=== PATIENT | male | born 1960 | race African-American/Black ===

== ENCOUNTER 2018-04-17 13:18 | Outpatient (CLI) | payer OTHER ==
--- NOTE | 2018-04-17 14:04 | Diagnostic Imaging Report ---
Indication:Thyroid nodule Technique: Grayscale and duplex Doppler imaging of the thyroid gland performed. Comparison: None Findings: The size, contour, and echogenicity of both lobes of the thyroid gland are right lobe 2.9 x 1.2 x 1.8 cm. Left lobe 3.8 x 1.8 x 1.2 cm. Tiny cyst noted within the right lobe. IMPRESSION: Essentially negative exam
== END 2018-04-17 15:18 | disposition home or self-care (01) ==
LOC: ULS 13:18
DX: E78.00 Pure hypercholesterolemia, unspecified (principal); J98.4 Other disorders of lung
CPT/HCPCS: 76536

== ENCOUNTER 2018-10-20 10:57 | Outpatient (CLI) | payer OTHER ==
--- NOTE | 2018-10-20 16:45 | Diagnostic Imaging Report ---
Indication: Abdominal pain Technique: Subramanian-scale and duplex images of the upper abdomen were obtained there are Doppler interrogation of the pancreatic and hepatic vessels Comparison: none Findings: Gallbladder is unremarkable, without stones, wall thickening, nor pericholecystic fluid. Sonographic Hwang's sign is negative. Common bile duct measures 4 mm in diameter. No intrahepatic biliary ductal dilatation. Liver demonstrates diffusely increased echogenicity, consistent with diffuse hepatocellular disease, most likely fatty change. Area of focal sparing is seen in the usual location adjacent to the gallbladder fossa. Portal vein and hepatic veins are patent. Pancreas is unremarkable. Spleen is unremarkable. Left kidney measures 12.5 cm in length. Right kidney measures 12.1 cm length. Both kidneys demonstrate normal echogenicity. There is no hydronephrosis. No focal abnormality . Non-aneurysmal abdominal aorta . Impression: Negative for gallstones or dilated ducts Liver demonstrates diffusely increased echogenicity, consistent with diffuse hepatocellular disease, most likely fatty change. Hypoechoic area adjacent to the gallbladder fossa, consistent with focal sparing within the fatty liver
== END 2018-10-20 12:57 | disposition home or self-care (01) ==
LOC: ULS 10:57
DX: R10.813 Right lower quadrant abdominal tenderness (principal); R10.811 Right upper quadrant abdominal tenderness
CPT/HCPCS: 76700

== ENCOUNTER 2020-06-21 14:14 | Emergency (ER) | payer BC ==
[~2020-06-21] VITALS: Ht 182.9 cm; Wt 102.5 kg
[~2020-06-21 14:14] MED LIST: AMLODIPINE BESY10 MG ORAL; CRESTOR10 M2 ORAL; FLOMAX0.4 MG ORAL; LOSARTAN-HCTZ1 EACH ORAL
[2020-06-21 14:31] VITALS: BP 120/78
[2020-06-21 15:20] VITALS: BP 128/83
--- NOTE | 2020-06-21 15:28 | Emergency Room Report ---
History of Present Illness General Chief Complaint: Wound Recheck/Suture Removal Source: Patient Present Illness HPI Disclaimer: Please note that this report is being documented using [employer] technology. This can lead to erroneous entry secondary to incorrect interpretation by the dictating instrument. HPI: 59-year-old male history of hypertension presented from home due to surgical site bleeding. Patient had arthroscopic right knee surgery this morning with Dr. Jacobsen. Patient went home and developed some bleeding from his surgical site. He presented to the ER for evaluation. Denies any trauma. Pain is controlled. PMH: Hypertension PSH: Reviewed Social Hx: Patient denies any smoking drinking or illicit drug use Allergies: Coded Allergies: No Known Allergies (Unverified , 06/21/20) COVID-19 Screening Contact w/high risk pt: No Experienced COVID-19 symptoms?: No COVID-19 Testing performed [employer]IDENT/[employer]: Yes - 06/20/20 COVID-19 Screening: Negative COVID-19 COVID-19 Testing Source: [facility] Patient History Reviewed Nursing Documentation: PMH: Agreed; PSxH: Agreed Nursing Documentation-PMH Past Medical History: No History, Except For Hx Hypertension: Yes Hx Cancer: No Hx Gastrointestinal Problems: Yes Hx Neurological Problems: No Review of Systems All Other Systems: negative except mentioned in HPI Physical Exam Vital Signs Date Time Temp Pulse Resp B/P (MAP) Pulse Ox O2 Delivery O2 Flow Rate FiO2 06/21/20 14:26 99.1 87 17 122/76 (91) 98 Room Air Sp02 EP Interpretation: reviewed, normal General Appearance: well appearing, no apparent distress Head: normocephalic, atraumatic Eyes: bilateral eye PERRL, bilateral eye EOMI ENT: hearing grossly normal, moist mucus membranes Neck: full range of motion, supple Respiratory: lungs clear, normal breath sounds, no rhonchi, no respiratory distress, no retraction, no wheezing Cardiovascular #1: normal peripheral pulses, regular rate, rhythm, no murmur Gastrointestinal: non tender, soft, non-distended, no guarding Musculoskeletal: other - 2 incision sites noted to right knee. Medial incision with oozing of blood lateral incision dressing clean dry and intact. Neurologic: alert, oriented x3, no focal defects Skin: normal color, warm/dry Medical Decision Making Diagnostic Impression: Primary Impression: Encounter for postoperative wound check Additional Impression: Postoperative bleeding from incision ER Course Patient presented for bleeding from surgical site. Patient had surgery this morning. On my assessment in the ER bleeding had improved. We did apply a pressure dressing. Patient was in no distress. He is currently not on any blood thinners. I spoke with the orthopedic surgeon, Dr. jacobsen who agreed with our compression dressing. After observation no recurrent bleeding noted patient was discharged home with dressing supplies and outpatient follow- up with his orthopedic surgeon. Return precautions given. Last Vital Signs Date Time Temp Pulse Resp B/P (MAP) Pulse Ox O2 Delivery O2 Flow Rate FiO2 06/21/20 14:31 99.2 75 17 120/78 98 Room Air Disposition: HOME, SELF-CARE Condition: Improved Referrals: Donal Jacobsen MD Patient Instructions: Dressing Change Additional Instructions: Please follow-up with Dr. Jacobsen as scheduled. return for any concerns. Keagan Carrillo M.D. Jun 21, 2020 15:28
== END 2020-06-21 15:20 | disposition home or self-care (01) ==
LOC: EMR 15:09
DX: M96.830 Postprocedural hemorrhage of a musculoskeletal structure following a musculoskeletal system procedure (principal); I10 Essential (primary) hypertension
CPT/HCPCS: 99282